=== PATIENT | male | born 1990 | race Caucasian/White ===

== ENCOUNTER 2025-02-14 08:52 | Emergency (ER) | payer BC ==
[2025-02-14] MEDS: Lidocaine 2% 5 ML SDV INJECT ONE (09:24)
[2025-02-14] MEDS ORDERED: Naloxone 0.4 MG/ML SDV IVPUSH PRN (09:29)
[2025-02-14] MEDS: HYDROmorphone 1 MG/ML Syringe IVPUSH ONE (09:31)
[2025-02-14] MEDS: Mupirocin Oint 22 GM Tube TOP ONE (10:34)
[2025-02-14] MEDS: Diphtheria,Pertussis(Acell),Tetanus Vaccine 0.5 ML Syringe IM ONE (10:35)
[2025-02-14] MEDS: Lidocaine 2% 5 ML SDV ONE (10:37)
[2025-02-14] MEDS: ceFAZolin 2 GM in Premix Bag 1 BAG IV ONE (11:05)
== END 2025-02-14 11:45 ==
LOC: LL.ED 08:52
DX: S62.201A Unspecified fracture of first metacarpal bone, right hand, initial encounter for closed fracture (principal); S62.300A Unspecified fracture of second metacarpal bone, right hand, initial encounter for closed fracture; S62.304A Unspecified fracture of fourth metacarpal bone, right hand, initial encounter for closed fracture; S61.411A Laceration without foreign body of right hand, initial encounter; Z23 Encounter for immunization; Z91.048 Other nonmedicinal substance allergy status; W20.8XXA Other cause of strike by thrown, projected or falling object, initial encounter
CPT/HCPCS: 12004; 73130-RT; 90471; 90715; 96365; 96375; 99285-25; A9270-GY; J0690; J1171; J2003

== ENCOUNTER 2025-02-16 17:06 | Emergency (ER) | payer BC ==
[2025-02-16] MEDS: Bacitracin/Neomycin/Polymyxin B Oint 0.9 GM U/D Packet TOP ONE (17:47)
[2025-02-16] MEDS: Take Home: Cephalexin 500 MG Cap, 6 Cap Pack PO ONE (17:47)
== END 2025-02-16 18:10 | disposition home or self-care (01) ==
LOC: LL.ED 17:06
DX: M79.642 Pain in left hand (principal); S61.412S Laceration without foreign body of left hand, sequela; S61.411S Laceration without foreign body of right hand, sequela; Z91.048 Other nonmedicinal substance allergy status; Z79.899 Other long term (current) drug therapy; X58.XXXS Exposure to other specified factors, sequela
CPT/HCPCS: 99282; 99283; A9270-GY